=== PATIENT | male | born 1970 | race Caucasian/White ===

== ENCOUNTER 2017-07-07 20:12 | Emergency (ER) | payer MEDICAID ==
[2017-07-07 22:09] LABS: ADD MAN DIFF? NO
[2017-07-07 22:10] LABS: WHITE BLOOD COUNT 12.7 10^3/ul (4.8-10.8)
[2017-07-07 22:10] LABS: BASOPHIL # 0.1 10^3/ul (0.0-0.1); BASOPHILS % 0.6 % (0.0-2.0); EOSINOPHILS # 0.2 10^3/ul (0.0-0.5); EOSINOPHILS % 1.3 % (0.0-7.0); HEMOGLOBIN 17.4 g/dl (14.0-18.0); LYMPHOCYTES # 2.6 10^3/ul (0.8-2.9); LYMPHOCYTES % 20.5 % (15.0-51.0); MEAN CORPUSCULAR HEMOGLOBIN 28.8 pg (29.0-33.0); MEAN CORPUSCULAR HGB CONC 32.8 g/dl (32.0-37.0); MEAN CORPUSCULAR VOLUME 87.7 fl (82.0-101.0); MEAN PLATELET VOLUME 10.5 fl (7.4-10.4); MONOCYTE # 0.8 10^3/ul (0.3-0.9); MONOCYTES % 6.6 % (0.0-11.0); NEUTROPHIL # 8.9 10^3/ul (1.6-7.5); NEUTROPHILS % 70.1 % (39.0-77.0); PLATELET COUNT 283 10^3/UL (140-415); RED BLOOD COUNT 6.04 10^6/ul (4.70-6.10)
[2017-07-07] MEDS: HYDROmorphONE 1 MG/ML SYG IV (22:25)
[2017-07-07] MEDS: SOD CHLORIDE 0.9% 1,000 ML IV (22:25)
[2017-07-07] MEDS: ONDANSETRON 4 MG INJ IV (22:25)
[2017-07-07 22:26] LABS: INR 0.95; PROTIME 12.8 Sec (11.9-14.9)
[2017-07-07 22:27] LABS: PARTIAL THROMBOPLASTIN TIME 27.6 Sec (25.0-35.0)
[2017-07-07 22:30] LABS: ALANINE AMINOTRANSFERASE 47 IU/L (13-69); ALBUMIN 3.6 g/dl (3.3-4.9); ALBUMIN/GLOBULIN RATIO 1.09; ALKALINE PHOSPHATASE 109 IU/L (42-121); ANION GAP 19 (8-16); ASPARTATE AMINO TRANSFERASE 33 IU/L (15-46); BILIRUBIN,INDIRECT 0.1 mg/dl (0-1.1); BILIRUBIN,TOTAL 0.1 mg/dl (0.2-1.3); BLOOD UREA NITROGEN 12 mg/dl (7-20); CALCIUM 8.3 mg/dl (8.4-10.2); CARBON DIOXIDE 25 mmol/L (21-31); CHLORIDE 101 mmol/L (97-110); CREATININE 0.62 mg/dl (0.61-1.24); GLUCOSE 136 mg/dl (70-220); LIPASE 67 U/L (23-300); POTASSIUM 4.7 mmol/L (3.5-5.1); SODIUM 140 mmol/L (135-144); TOTAL PROTEIN 6.9 g/dl (6.1-8.1)
[2017-07-07 22:41] LABS: LACTIC ACID 2.1 mmol/L (0.5-2.0)
[2017-07-07 22:41] LABS: TROPONIN-I < 0.012 ng/ml (0.00-0.12)
== END 2017-07-08 00:42 | disposition home or self-care (01) ==
LOC: E/R 07-08 00:42
DX: R10.84 Generalized abdominal pain (principal); Z87.891 Personal history of nicotine dependence
CPT/HCPCS: 36415; 71045; 74176; 80053; 83605; 83690; 84484; 85025; 85610; 85730; 93005; 96374; 96375; 99285-25

== ENCOUNTER 2017-07-11 19:54 | Inpatient (IN) | payer MEDICAID ==
[2017-07-12] MEDS: SOD CHLORIDE 0.9% 1,000 ML IV (02:27)
[2017-07-12] MEDS: morphine 4 MG/ML VIAL IV (02:27)
[2017-07-12] MEDS: ONDANSETRON 4 MG INJ IV (02:28)
[2017-07-12] MEDS: IOHEXOL 300MG/ML 150 ML BTL (03:10)
[2017-07-12] MEDS: SOD CHLORIDE 0.9% 100 ML (03:10)
[2017-07-12 03:20] LABS: ADD MAN DIFF? NO
[2017-07-12 03:23] LABS: BASOPHIL # 0.1 10^3/ul (0.0-0.1); BASOPHILS % 0.7 % (0.0-2.0); EOSINOPHILS # 0.4 10^3/ul (0.0-0.5); EOSINOPHILS % 4.2 % (0.0-7.0); HEMATOCRIT 48.2 % (42.0-52.0); HEMOGLOBIN 16.2 g/dl (14.0-18.0); LYMPHOCYTES # 2.7 10^3/ul (0.8-2.9); LYMPHOCYTES % 26.7 % (15.0-51.0); MEAN CORPUSCULAR HEMOGLOBIN 29.3 pg (29.0-33.0); MEAN CORPUSCULAR HGB CONC 33.6 g/dl (32.0-37.0); MEAN CORPUSCULAR VOLUME 87.2 fl (82.0-101.0); MEAN PLATELET VOLUME 10.3 fl (7.4-10.4); MONOCYTE # 0.6 10^3/ul (0.3-0.9); MONOCYTES % 6.3 % (0.0-11.0); NEUTROPHIL # 6.1 10^3/ul (1.6-7.5); PLATELET COUNT 276 10^3/UL (140-415); RED BLOOD COUNT 5.53 10^6/ul (4.70-6.10); RED CELL DISTRIBUTION WIDTH 14.5 % (11.5-14.5)
[2017-07-12 03:33] LABS: ADD UMIC NO; UR ASCORBIC ACID NEGATIVE (NEGATIVE); UR BILIRUBIN (Dip) NEGATIVE (NEGATIVE); UR BLOOD (Dip) NEGATIVE (NEGATIVE); UR CLARITY CLEAR (CLEAR); UR COLOR YELLOW (YELLOW); UR GLUCOSE (Dip) NEGATIVE (NEGATIVE); UR KETONES (Dip) NEGATIVE (NEGATIVE); UR LEUKOCYTE ESTERASE (Dip) NEGATIVE Leu/ul (NEGATIVE); UR NITRITE (Dip) NEGATIVE (NEGATIVE); UR SPECIFIC GRAVITY (Dip) 1.019 (1.003-1.030); UR TOTAL PROTEIN (Dip) NEGATIVE (NEGATIVE); UR UROBILINOGEN (Dip) 1+ mg/dL (NEGATIVE)
[2017-07-12 03:55] LABS: ALANINE AMINOTRANSFERASE 49 IU/L (13-69); ALBUMIN 3.6 g/dl (3.3-4.9); ALBUMIN/GLOBULIN RATIO 1.09; ALKALINE PHOSPHATASE 81 IU/L (42-121); ANION GAP 17 (8-16); ASPARTATE AMINO TRANSFERASE 40 IU/L (15-46); BILIRUBIN,INDIRECT 0.3 mg/dl (0-1.1); BILIRUBIN,TOTAL 0.3 mg/dl (0.2-1.3); BLOOD UREA NITROGEN 10 mg/dl (7-20); CALCIUM 8.6 mg/dl (8.4-10.2); CARBON DIOXIDE 24 mmol/L (21-31); CHLORIDE 104 mmol/L (97-110); CREATININE 0.62 mg/dl (0.61-1.24); GLUCOSE 150 mg/dl (70-220); LIPASE 79 U/L (23-300); POTASSIUM 3.9 mmol/L (3.5-5.1); SODIUM 141 mmol/L (135-144); TOTAL PROTEIN 6.9 g/dl (6.1-8.1)
[2017-07-12] MEDS: HYDROmorphONE 1 MG/ML SYG IV (04:47)
[2017-07-12] MEDS: PIPER-TAZO 3.375 GM IV (PMX) 100 ML IVPB (04:47)
[2017-07-12] MEDS: DEXTROSE 5%-0.45% NACL 1,000 ML IV (11:50)
[2017-07-12] MEDS ORDERED: ALBUTEROL/IPRATROPIUM (NEB) 3 ML AMP HHN (12:00)
[2017-07-12] MEDS: CIPROFLOXACIN 400MG/D5W 200 ML IVPB ×2 (13:05→20:25)
[2017-07-12] MEDS: POLYETHYLENE GLYCOL 17 GM PACKET PO (13:05)
[2017-07-12] MEDS: NICOTINE (21 MG/24 HR) PATCH TRANSDERM (13:08)
[2017-07-12] MEDS: metroNIDAZOLE 500 MG/NS (PMX) 100 ML IVPB ×2 (14:09→22:06)
[2017-07-12] MEDS: morphine 2 MG INJ IV ×2 (15:24→20:26)
[2017-07-12] MEDS: DOCUSATE SODIUM 250 MG CAP PO (15:24)
[2017-07-12 17:15] LABS: OPIATES Negative (NEGATIVE)
[2017-07-12 17:46] LABS: AMPHETAMINE/METHAMPHETAMINE Negative (NEGATIVE); BARBITURATES Negative (NEGATIVE); BENZODIAZEPINES Negative (NEGATIVE); CANNABINOIDS Negative (NEGATIVE); COCAINE Negative (NEGATIVE)
[2017-07-12] MEDS: FAMOTIDINE 20 MG INJ IV (20:25)
[2017-07-13] MEDS: FLUTICASONE 0.05% 16 GM NAS SPRAY NASAL ×3 (01:01→21:09)
[2017-07-13] MEDS: DEXTROSE 5%-0.45% NACL 1,000 ML IV ×2 (01:06→15:54)
[2017-07-13] MEDS: morphine 2 MG INJ IV ×2 (01:07→08:15)
[2017-07-13] MEDS: metroNIDAZOLE 500 MG/NS (PMX) 100 ML IVPB ×3 (05:26→22:13)
[2017-07-13 05:27] LABS: ADD MAN DIFF? NO
[2017-07-13 05:35] LABS: BASOPHIL # 0.1 10^3/ul (0.0-0.1); BASOPHILS % 0.6 % (0.0-2.0); EOSINOPHILS # 0.4 10^3/ul (0.0-0.5); EOSINOPHILS % 5.1 % (0.0-7.0); HEMATOCRIT 51.2 % (42.0-52.0); HEMOGLOBIN 16.2 g/dl (14.0-18.0); LYMPHOCYTES # 1.9 10^3/ul (0.8-2.9); LYMPHOCYTES % 23.2 % (15.0-51.0); MEAN CORPUSCULAR HEMOGLOBIN 28.4 pg (29.0-33.0); MEAN CORPUSCULAR HGB CONC 31.6 g/dl (32.0-37.0); MEAN CORPUSCULAR VOLUME 89.7 fl (82.0-101.0); MEAN PLATELET VOLUME 9.9 fl (7.4-10.4); MONOCYTE # 0.5 10^3/ul (0.3-0.9); MONOCYTES % 6.7 % (0.0-11.0); NEUTROPHIL # 5.1 10^3/ul (1.6-7.5); NEUTROPHILS % 63.3 % (39.0-77.0); PLATELET COUNT 267 10^3/UL (140-415); RED BLOOD COUNT 5.71 10^6/ul (4.70-6.10); RED CELL DISTRIBUTION WIDTH 14.1 % (11.5-14.5)
[2017-07-13 05:35] LABS: WHITE BLOOD COUNT 8.1 10^3/ul (4.8-10.8)
[2017-07-13 06:03] LABS: ANION GAP 12 (8-16); BLOOD UREA NITROGEN 7 mg/dl (7-20); CALCIUM 8.4 mg/dl (8.4-10.2); CARBON DIOXIDE 30 mmol/L (21-31); CHLORIDE 102 mmol/L (97-110); CREATININE 0.65 mg/dl (0.61-1.24); GLUCOSE 114 mg/dl (70-220); POTASSIUM 4.1 mmol/L (3.5-5.1); SODIUM 140 mmol/L (135-144)
[2017-07-13 07:05] LABS: HEMOGLOBIN A1C 8.7 % (0-5.9)
[2017-07-13] MEDS: CIPROFLOXACIN 400MG/D5W 200 ML IVPB ×2 (08:13→21:09)
[2017-07-13] MEDS: FAMOTIDINE 20 MG INJ IV ×2 (08:13→21:08)
[2017-07-13] MEDS: POLYETHYLENE GLYCOL 17 GM PACKET PO (08:13)
[2017-07-13] MEDS: DOCUSATE SODIUM 250 MG CAP PO (08:13)
[2017-07-13] MEDS: NICOTINE (21 MG/24 HR) PATCH TRANSDERM (08:14)
[2017-07-13 10:03] LABS: OCCULT BLOOD STOOL POSITIVE (NEGATIVE)
[2017-07-13] MEDS: DIATR MEGLU/DIATRIZOATE SODIUM 120 ML BTL ×2 (14:04)
[2017-07-13] MEDS: INSULIN ASPART [NOVOLOG] 3 ML PEN SC ×2 (17:00→21:00)
[2017-07-13] MEDS ORDERED: GLUCOSE GEL 15 GRAM TUBE BUCCAL (17:30)
[2017-07-13] MEDS ORDERED: GLUCAGON 1 MG INJ IM (17:30)
[2017-07-13] MEDS ORDERED: DEXTROSE 50% 50 ML SYRINGE IV ×2 (17:30)
[2017-07-13] MEDS ORDERED: GLUCOSE GEL 15 GRAM TUBE PO ×2 (17:30)
[2017-07-13] MEDS: morphine 4 MG/ML VIAL IV (22:13)
[2017-07-14] MEDS: INSULIN ASPART [NOVOLOG] 3 ML PEN SC ×6 (01:00→21:00)
[2017-07-14] MEDS: DEXTROSE 5%-0.45% NACL 1,000 ML IV ×2 (03:26→18:26)
[2017-07-14] MEDS: morphine 4 MG/ML VIAL IV (05:16)
[2017-07-14] MEDS: metroNIDAZOLE 500 MG/NS (PMX) 100 ML IVPB ×3 (05:51→23:14)
[2017-07-14 05:58] LABS: ADD MAN DIFF? NO
[2017-07-14 05:59] LABS: WHITE BLOOD COUNT 8.4 10^3/ul (4.8-10.8)
[2017-07-14 05:59] LABS: BASOPHILS % 0.5 % (0.0-2.0); EOSINOPHILS # 0.3 10^3/ul (0.0-0.5); EOSINOPHILS % 3.6 % (0.0-7.0); HEMATOCRIT 50.8 % (42.0-52.0); HEMOGLOBIN 16.7 g/dl (14.0-18.0); LYMPHOCYTES # 1.9 10^3/ul (0.8-2.9); LYMPHOCYTES % 22.2 % (15.0-51.0); MEAN CORPUSCULAR HEMOGLOBIN 28.8 pg (29.0-33.0); MEAN CORPUSCULAR HGB CONC 32.9 g/dl (32.0-37.0); MEAN CORPUSCULAR VOLUME 87.7 fl (82.0-101.0); MONOCYTE # 0.6 10^3/ul (0.3-0.9); MONOCYTES % 7.2 % (0.0-11.0); NEUTROPHIL # 5.5 10^3/ul (1.6-7.5); NEUTROPHILS % 65.9 % (39.0-77.0); PLATELET COUNT 283 10^3/UL (140-415); RED BLOOD COUNT 5.79 10^6/ul (4.70-6.10); RED CELL DISTRIBUTION WIDTH 14.2 % (11.5-14.5)
[2017-07-14 06:52] LABS: ANION GAP 14 (8-16); BLOOD UREA NITROGEN 9 mg/dl (7-20); CALCIUM 8.7 mg/dl (8.4-10.2); CARBON DIOXIDE 28 mmol/L (21-31); CHLORIDE 103 mmol/L (97-110); CREATININE 0.66 mg/dl (0.61-1.24); GLUCOSE 105 mg/dl (70-220); POTASSIUM 3.8 mmol/L (3.5-5.1); SODIUM 141 mmol/L (135-144)
[2017-07-14] MEDS: FLUTICASONE 0.05% 16 GM NAS SPRAY NASAL ×2 (08:58→21:00)
[2017-07-14] MEDS: NICOTINE (21 MG/24 HR) PATCH TRANSDERM (09:00)
[2017-07-14] MEDS: POLYETHYLENE GLYCOL 17 GM PACKET PO (09:00)
[2017-07-14] MEDS: FAMOTIDINE 20 MG INJ IV ×2 (09:02→21:26)
[2017-07-14] MEDS: CIPROFLOXACIN 400MG/D5W 200 ML IVPB ×2 (09:03→21:25)
[2017-07-14] MEDS: DOCUSATE SODIUM 250 MG CAP PO (09:03)
[2017-07-15] MEDS: INSULIN ASPART [NOVOLOG] 3 ML PEN SC ×3 (00:11→12:00)
[2017-07-15] MEDS: metroNIDAZOLE 500 MG/NS (PMX) 100 ML IVPB ×2 (05:17→14:03)
[2017-07-15] MEDS: morphine 4 MG/ML VIAL IV (05:47)
[2017-07-15 06:13] LABS: ADD MAN DIFF? NO
[2017-07-15 06:23] LABS: BASOPHIL # 0.1 10^3/ul (0.0-0.1); BASOPHILS % 0.7 % (0.0-2.0); EOSINOPHILS # 0.4 10^3/ul (0.0-0.5); EOSINOPHILS % 4.5 % (0.0-7.0); HEMATOCRIT 52.9 % (42.0-52.0); HEMOGLOBIN 17.2 g/dl (14.0-18.0); LYMPHOCYTES # 2.5 10^3/ul (0.8-2.9); LYMPHOCYTES % 28.6 % (15.0-51.0); MEAN CORPUSCULAR HEMOGLOBIN 28.4 pg (29.0-33.0); MEAN CORPUSCULAR HGB CONC 32.5 g/dl (32.0-37.0); MEAN CORPUSCULAR VOLUME 87.4 fl (82.0-101.0); MONOCYTE # 0.6 10^3/ul (0.3-0.9); MONOCYTES % 6.6 % (0.0-11.0); NEUTROPHIL # 5.1 10^3/ul (1.6-7.5); NEUTROPHILS % 58.9 % (39.0-77.0); PLATELET COUNT 287 10^3/UL (140-415); RED BLOOD COUNT 6.05 10^6/ul (4.70-6.10); RED CELL DISTRIBUTION WIDTH 13.7 % (11.5-14.5)
[2017-07-15 06:23] LABS: WHITE BLOOD COUNT 8.7 10^3/ul (4.8-10.8)
[2017-07-15 06:47] LABS: ANION GAP 14 (8-16); BLOOD UREA NITROGEN 11 mg/dl (7-20); CALCIUM 8.5 mg/dl (8.4-10.2); CARBON DIOXIDE 27 mmol/L (21-31); CHLORIDE 102 mmol/L (97-110); CREATININE 0.67 mg/dl (0.61-1.24); GLUCOSE 104 mg/dl (70-220); POTASSIUM 3.6 mmol/L (3.5-5.1); SODIUM 139 mmol/L (135-144)
[2017-07-15] MEDS: NICOTINE (21 MG/24 HR) PATCH TRANSDERM (09:00)
[2017-07-15] MEDS: POLYETHYLENE GLYCOL 17 GM PACKET PO (09:47)
[2017-07-15] MEDS: FAMOTIDINE 20 MG INJ IV (09:47)
[2017-07-15] MEDS: DOCUSATE SODIUM 250 MG CAP PO (09:47)
[2017-07-15] MEDS: CIPROFLOXACIN 400MG/D5W 200 ML IVPB (09:47)
[2017-07-15] MEDS: FLUTICASONE 0.05% 16 GM NAS SPRAY NASAL (11:58)
[2017-07-16] MEDS ORDERED: ACCU-CHEK XX (02:00)
== END 2017-07-15 16:09 | disposition home or self-care (01) | DRG 394 ==
LOC: FTE 19:54 → PP2 07-14 17:28 → MS3 07-12 05:24
DX: K43.2 Incisional hernia without obstruction or gangrene (principal); L03.311 Cellulitis of abdominal wall; Z68.41 Body mass index [BMI] 40.0-44.9, adult; K76.0 Fatty (change of) liver, not elsewhere classified; K92.1 Melena; E66.01 Morbid (severe) obesity due to excess calories; F17.200 Nicotine dependence, unspecified, uncomplicated; Z72.89 Other problems related to lifestyle; E11.9 Type 2 diabetes mellitus without complications; G47.33 Obstructive sleep apnea (adult) (pediatric)
CPT/HCPCS: 36415; 71046; 74177; 74250; 80048; 80053; 80307; 81003; 82270; 82962; 83036; 83690; 83735; 84443; 85025; 94660; 96374; 96375; 99285-25

== ENCOUNTER 2017-09-27 21:20 | Inpatient (IN) | payer MEDICAID ==
[2017-09-28] MEDS: ONDANSETRON 4 MG INJ IV ×2 (01:49→05:49)
[2017-09-28] MEDS: SOD CHLORIDE 0.9% 500 ML IV (01:50)
[2017-09-28] MEDS: morphine 4 MG/ML VIAL IV (01:50)
[2017-09-28 02:04] LABS: ADD MAN DIFF? NO
[2017-09-28 02:06] LABS: BASOPHIL # 0.1 10^3/ul (0.0-0.1); BASOPHILS % 0.6 % (0.0-2.0); EOSINOPHILS # 0.1 10^3/ul (0.0-0.5); EOSINOPHILS % 0.8 % (0.0-7.0); HEMATOCRIT 50.4 % (42.0-52.0); HEMOGLOBIN 16.7 g/dl (14.0-18.0); LYMPHOCYTES # 2.6 10^3/ul (0.8-2.9); LYMPHOCYTES % 18.3 % (15.0-51.0); MEAN CORPUSCULAR HEMOGLOBIN 27.9 pg (29.0-33.0); MEAN CORPUSCULAR HGB CONC 33.1 g/dl (32.0-37.0); MEAN CORPUSCULAR VOLUME 84.3 fl (82.0-101.0); MEAN PLATELET VOLUME 10.2 fl (7.4-10.4); MONOCYTE # 0.7 10^3/ul (0.3-0.9); MONOCYTES % 4.6 % (0.0-11.0); NEUTROPHIL # 10.8 10^3/ul (1.6-7.5); NEUTROPHILS % 75.1 % (39.0-77.0); PLATELET COUNT 297 10^3/UL (140-415); RED BLOOD COUNT 5.98 10^6/ul (4.70-6.10); RED CELL DISTRIBUTION WIDTH 13.7 % (11.5-14.5)
[2017-09-28 02:06] LABS: WHITE BLOOD COUNT 14.4 10^3/ul (4.8-10.8)
[2017-09-28 02:25] LABS: INR 1.04; PROTIME 13.7 Sec (11.9-14.9); PT RATIO 1.1
[2017-09-28 02:26] LABS: PARTIAL THROMBOPLASTIN TIME 26.6 Sec (25.0-35.0)
[2017-09-28 02:29] LABS: ALANINE AMINOTRANSFERASE 25 IU/L (13-69); ALBUMIN 4.1 g/dl (3.3-4.9); ALKALINE PHOSPHATASE 89 IU/L (42-121); ANION GAP 19 (8-16); ASPARTATE AMINO TRANSFERASE 22 IU/L (15-46); BILIRUBIN,INDIRECT 0.5 mg/dl (0-1.1); BILIRUBIN,TOTAL 0.5 mg/dl (0.2-1.3); BLOOD UREA NITROGEN 16 mg/dl (7-20); CALCIUM 8.9 mg/dl (8.4-10.2); CARBON DIOXIDE 31 mmol/L (21-31); CHLORIDE 99 mmol/L (97-110); CREATININE 0.69 mg/dl (0.61-1.24); GLUCOSE 144 mg/dl (70-220); LIPASE 41 U/L (23-300); POTASSIUM 3.9 mmol/L (3.5-5.1); SODIUM 145 mmol/L (135-144); TOTAL PROTEIN 8.2 g/dl (6.1-8.1)
[2017-09-28] MEDS ORDERED: NACL 0.9% 3 ML SYG IV (04:00)
[2017-09-28] MEDS ORDERED: ALBUTEROL/IPRATROPIUM (NEB) 3 ML AMP HHN (04:00)
[2017-09-28] MEDS ORDERED: GLUCAGON 1 MG INJ IM (04:30)
[2017-09-28] MEDS ORDERED: GLUCOSE GEL 15 GRAM TUBE PO ×2 (04:30)
[2017-09-28] MEDS ORDERED: GLUCOSE GEL 15 GRAM TUBE BUCCAL (04:30)
[2017-09-28] MEDS ORDERED: DEXTROSE 50% 50 ML SYRINGE IV ×2 (04:30)
[2017-09-28 04:36] LABS: ADD UMIC NO; UR ASCORBIC ACID NEGATIVE (NEGATIVE); UR BILIRUBIN (Dip) NEGATIVE (NEGATIVE); UR BLOOD (Dip) NEGATIVE (NEGATIVE); UR CLARITY CLEAR (CLEAR); UR COLOR YELLOW (YELLOW); UR GLUCOSE (Dip) NEGATIVE (NEGATIVE); UR KETONES (Dip) NEGATIVE (NEGATIVE); UR LEUKOCYTE ESTERASE (Dip) NEGATIVE Leu/ul (NEGATIVE); UR NITRITE (Dip) NEGATIVE (NEGATIVE); UR SPECIFIC GRAVITY (Dip) 1.006 (1.003-1.030); UR TOTAL PROTEIN (Dip) NEGATIVE (NEGATIVE); UR UROBILINOGEN (Dip) NEGATIVE (NEGATIVE)
[2017-09-28] MEDS: INSULIN ASPART [NOVOLOG] 3 ML PEN SC ×5 (04:59→20:36)
[2017-09-28] MEDS ORDERED: morphine 2 MG INJ (05:44)
[2017-09-28] MEDS ORDERED: ONDANSETRON 4 MG INJ (05:44)
[2017-09-28] MEDS: morphine 2 MG INJ IV ×4 (05:49→20:29)
[2017-09-28 07:26] LABS: ADD MAN DIFF? NO
[2017-09-28 07:30] LABS: WHITE BLOOD COUNT 12.2 10^3/ul (4.8-10.8)
[2017-09-28 07:30] LABS: BASOPHIL # 0.1 10^3/ul (0.0-0.1); BASOPHILS % 0.5 % (0.0-2.0); EOSINOPHILS # 0.2 10^3/ul (0.0-0.5); EOSINOPHILS % 1.8 % (0.0-7.0); HEMATOCRIT 49.8 % (42.0-52.0); HEMOGLOBIN 16.2 g/dl (14.0-18.0); LYMPHOCYTES # 2.8 10^3/ul (0.8-2.9); LYMPHOCYTES % 22.5 % (15.0-51.0); MEAN CORPUSCULAR HEMOGLOBIN 28.3 pg (29.0-33.0); MEAN CORPUSCULAR HGB CONC 32.5 g/dl (32.0-37.0); MEAN CORPUSCULAR VOLUME 86.9 fl (82.0-101.0); MEAN PLATELET VOLUME 9.9 fl (7.4-10.4); MONOCYTE # 0.7 10^3/ul (0.3-0.9); NEUTROPHIL # 8.4 10^3/ul (1.6-7.5); NEUTROPHILS % 68.6 % (39.0-77.0); PLATELET COUNT 270 10^3/UL (140-415); RED BLOOD COUNT 5.73 10^6/ul (4.70-6.10); RED CELL DISTRIBUTION WIDTH 13.9 % (11.5-14.5)
[2017-09-28] MEDS: DEXTROSE 5%-0.45% NACL 1,000 ML IV ×3 (07:32→23:43)
[2017-09-28] MEDS: LIDOCAINE 2% VISC 15 ML CUP MT (07:58)
[2017-09-28] MEDS: LIDOCAINE 2% JELLY 5 ML TOP (07:58)
[2017-09-28 08:02] LABS: ALANINE AMINOTRANSFERASE 35 IU/L (13-69); ALBUMIN 3.5 g/dl (3.3-4.9); ALBUMIN/GLOBULIN RATIO 0.92; ALKALINE PHOSPHATASE 70 IU/L (42-121); ANION GAP 13 (8-16); ASPARTATE AMINO TRANSFERASE 21 IU/L (15-46); BILIRUBIN,INDIRECT 0.2 mg/dl (0-1.1); BILIRUBIN,TOTAL 0.2 mg/dl (0.2-1.3); BLOOD UREA NITROGEN 13 mg/dl (7-20); CALCIUM 8.4 mg/dl (8.4-10.2); CARBON DIOXIDE 30 mmol/L (21-31); CHLORIDE 102 mmol/L (97-110); CREATININE 0.65 mg/dl (0.61-1.24); GLUCOSE 117 mg/dl (70-220); MAGNESIUM 2.3 mg/dl (1.7-2.5); PHOSPHORUS 5.9 mg/dl (2.5-4.9); POTASSIUM 4.4 mmol/L (3.5-5.1); SODIUM 141 mmol/L (135-144); TOTAL PROTEIN 7.3 g/dl (6.1-8.1)
[2017-09-28] MEDS: FAMOTIDINE 20 MG INJ IV ×2 (10:12→20:28)
[2017-09-28] MEDS: DIATR MEGLU/DIATRIZOATE SODIUM 120 ML BTL (11:05)
[2017-09-28] MEDS: INSULIN GLARGINE [LANtus] 3 ML PEN SC (20:35)
[2017-09-29] MEDS: INSULIN ASPART [NOVOLOG] 3 ML PEN SC ×6 (01:00→20:43)
[2017-09-29] MEDS: ACCU-CHEK XX ×4 (01:47→20:43)
[2017-09-29 06:18] LABS: ADD MAN DIFF? NO
[2017-09-29 06:23] LABS: WHITE BLOOD COUNT 11.6 10^3/ul (4.8-10.8)
[2017-09-29 06:23] LABS: BASOPHIL # 0.1 10^3/ul (0.0-0.1); BASOPHILS % 0.4 % (0.0-2.0); EOSINOPHILS # 0.3 10^3/ul (0.0-0.5); EOSINOPHILS % 2.7 % (0.0-7.0); HEMATOCRIT 51.3 % (42.0-52.0); HEMOGLOBIN 16.4 g/dl (14.0-18.0); LYMPHOCYTES # 1.8 10^3/ul (0.8-2.9); LYMPHOCYTES % 15.9 % (15.0-51.0); MEAN CORPUSCULAR HEMOGLOBIN 28.3 pg (29.0-33.0); MEAN CORPUSCULAR VOLUME 88.4 fl (82.0-101.0); MEAN PLATELET VOLUME 9.8 fl (7.4-10.4); MONOCYTE # 0.6 10^3/ul (0.3-0.9); MONOCYTES % 5.2 % (0.0-11.0); NEUTROPHIL # 8.7 10^3/ul (1.6-7.5); NEUTROPHILS % 75.2 % (39.0-77.0); PLATELET COUNT 263 10^3/UL (140-415); RED CELL DISTRIBUTION WIDTH 13.8 % (11.5-14.5)
[2017-09-29 06:51] LABS: ANION GAP 15 (8-16); BLOOD UREA NITROGEN 13 mg/dl (7-20); CARBON DIOXIDE 29 mmol/L (21-31); CHLORIDE 106 mmol/L (97-110); CREATININE 0.73 mg/dl (0.61-1.24); GLUCOSE 123 mg/dl (70-220); MAGNESIUM 2.1 mg/dl (1.7-2.5); PHOSPHORUS 4.6 mg/dl (2.5-4.9); POTASSIUM 4.5 mmol/L (3.5-5.1); SODIUM 145 mmol/L (135-144)
[2017-09-29] MEDS: DEXTROSE 5%-0.45% NACL 1,000 ML IV ×2 (08:05→17:53)
[2017-09-29] MEDS: FAMOTIDINE 20 MG INJ IV ×2 (09:00→20:28)
[2017-09-29] MEDS: morphine 2 MG INJ IV (15:49)
[2017-09-29] MEDS: KETOROLAC 15 MG INJ IV (20:28)
[2017-09-29] MEDS: INSULIN GLARGINE [LANtus] 3 ML PEN SC (20:42)
[2017-09-29] MEDS: DOCUSATE SODIUM 100 MG CAP PO (20:42)
[2017-09-30] MEDS: DEXTROSE 5%-0.45% NACL 1,000 ML IV (05:43)
[2017-09-30 06:17] LABS: ADD MAN DIFF? NO
[2017-09-30 06:22] LABS: WHITE BLOOD COUNT 10.3 10^3/ul (4.8-10.8)
[2017-09-30 06:22] LABS: BASOPHILS % 0.4 % (0.0-2.0); EOSINOPHILS # 0.2 10^3/ul (0.0-0.5); EOSINOPHILS % 2.2 % (0.0-7.0); HEMOGLOBIN 15.9 g/dl (14.0-18.0); LYMPHOCYTES # 2.4 10^3/ul (0.8-2.9); LYMPHOCYTES % 23.1 % (15.0-51.0); MEAN CORPUSCULAR HEMOGLOBIN 28.3 pg (29.0-33.0); MEAN CORPUSCULAR HGB CONC 32.4 g/dl (32.0-37.0); MEAN CORPUSCULAR VOLUME 87.2 fl (82.0-101.0); MEAN PLATELET VOLUME 10.3 fl (7.4-10.4); MONOCYTE # 0.7 10^3/ul (0.3-0.9); MONOCYTES % 6.3 % (0.0-11.0); NEUTROPHIL # 6.9 10^3/ul (1.6-7.5); NEUTROPHILS % 67.1 % (39.0-77.0); PLATELET COUNT 242 10^3/UL (140-415); RED BLOOD COUNT 5.62 10^6/ul (4.70-6.10); RED CELL DISTRIBUTION WIDTH 13.9 % (11.5-14.5)
[2017-09-30 06:48] LABS: INR 1.09; PROTIME 14.2 Sec (11.9-14.9); PT RATIO 1.1
[2017-09-30 06:48] LABS: HEMOGLOBIN A1C 7.4 % (0-5.9)
[2017-09-30 07:01] LABS: ALANINE AMINOTRANSFERASE 42 IU/L (13-69); ALBUMIN 3.3 g/dl (3.3-4.9); ALBUMIN/GLOBULIN RATIO 0.97; ALKALINE PHOSPHATASE 85 IU/L (42-121); ANION GAP 16 (8-16); ASPARTATE AMINO TRANSFERASE 26 IU/L (15-46); BILIRUBIN,INDIRECT 0.3 mg/dl (0-1.1); BILIRUBIN,TOTAL 0.3 mg/dl (0.2-1.3); BLOOD UREA NITROGEN 12 mg/dl (7-20); CALCIUM 8.6 mg/dl (8.4-10.2); CARBON DIOXIDE 29 mmol/L (21-31); CHLORIDE 103 mmol/L (97-110); CREATININE 0.65 mg/dl (0.61-1.24); GLUCOSE 101 mg/dl (70-220); PHOSPHORUS 4.7 mg/dl (2.5-4.9); POTASSIUM 4.1 mmol/L (3.5-5.1); SODIUM 144 mmol/L (135-144); TOTAL PROTEIN 6.7 g/dl (6.1-8.1)
[2017-09-30] MEDS: INSULIN ASPART [NOVOLOG] 3 ML PEN SC (07:30)
[2017-09-30] MEDS: ACCU-CHEK XX (08:00)
[2017-10-02] MEDS ORDERED: IBUPROFEN 600 MG TAB PO (22:00)
== END 2017-09-30 12:25 | disposition home or self-care (01) | DRG 389 ==
LOC: E/R 21:20 → MS3 09-28 03:27 → PP2 09-28 03:27
DX: K56.699 Other intestinal obstruction unspecified as to partial versus complete obstruction (principal); Z68.41 Body mass index [BMI] 40.0-44.9, adult; E66.01 Morbid (severe) obesity due to excess calories; Z87.891 Personal history of nicotine dependence; E11.9 Type 2 diabetes mellitus without complications; D72.829 Elevated white blood cell count, unspecified
CPT/HCPCS: 36415; 74176; 74250; 80048; 80053; 81003; 82962; 83036; 83690; 83735; 84100; 84443; 85025; 85610; 85730; 96374; 96375; 96376; 99285-25